=== PATIENT | female | born 1955 | race Caucasian/White ===

== ENCOUNTER 2021-10-20 10:00 | Emergency (ER) | payer MEDICARE, OTHER, SELFPAY ==
--- NOTE | ~2021-10-20 | CT_ITS ---
EXAMINATION: CT ABDOMEN AND PELVIS WITHOUT CONTRAST CLINICAL INFORMATION: Abdominal pain. COMPARISON: None TECHNIQUE: Multidetector volumetric imaging was performed from the superior aspect of the liver through the pubic symphysis. Sagittal and coronal reformatted images were obtained on the technologist's workstation. This CT examination was performed using dose optimization techniques as appropriate, variously including the following: *Automated exposure control *Adjustment of mA and/or kV according to patient size (this includes techniques or standardized protocols for targeted exams where dose is matched to indication/reason for exam; i.e. extremities or head) *Use of iterative reconstruction technique DLP: 710 mGy-cm FINDINGS: LUNG BASES: The visualized lung bases are unremarkable. LIVER, GALLBLADDER, AND BILIARY TREE: The liver is normal in size and shape. Parenchymal hypoattenuation consistent with steatosis. Right hepatic 0.8 cm hypodensity, too small to characterize. No additional focal hepatic lesion or biliary ductal dilatation is present. The gallbladder is unremarkable with no evidence of radiopaque gallstones, gallbladder wall thickening, or obvious pericholecystic inflammatory changes. PANCREAS: Unremarkable. SPLEEN: Unremarkable. ADRENAL GLANDS: Unremarkable. KIDNEYS AND URETERS: The kidneys are normal in size, shape, and attenuation. No hydronephrosis, hydroureter, or calculi seen. No perinephric stranding. BLADDER: Nondistended. GASTROINTESTINAL TRACT: Mild circumferential wall thickening of the ascending colon with minimal adjacent inflammatory change which could represent early colitis in the appropriate clinical setting. Descending and sigmoid colon diverticulosis without evidence of acute diverticulitis. No small or large bowel obstruction. Unremarkable appendix. PERITONEAL CAVITY: No intra-abdominal free air or free fluid. No intra-abdominal mass or organized fluid collection/abscess formation. ABDOMINAL WALL: No significant hernia is appreciated. LYMPH NODES: Normal. VASCULAR: Unremarkable. PELVIC VISCERA: The uterus and adnexa are unremarkable. OSSEOUS STRUCTURES: Unremarkable. CT/CT abdomen pelvis wo con IMPRESSION: 1. Mild circumferential wall thickening of the ascending colon with minimal adjacent inflammatory change which could represent early colitis in the appropriate clinical setting. No evidence of perforation or abscess formation. Descending/sigmoid diverticulosis without evidence of acute diverticulitis. No small or large bowel obstruction. Unremarkable appendix. 2. Hepatic steatosis. Fleischner guidelines were followed.
[2021-10-20 10:22] VITALS: BP 99/73; PULSE 92; TEMP 36.6; O2SAT 95; BMI 31.9
--- NOTE | 2021-10-20 10:43 | ED_ITS ---
HPI - General Adult General Chief complaint: Fever Stated complaint: fever/diarrhea/body aches Time Seen by Provider: 10/20/21 10:43 Source: patient Mode of arrival: ambulatory Limitations: no limitations History of Present Illness HPI narrative: Patient is a 66 year old female presenting to the emergency department today with nausea, diarrhea, body aches and intermittent fever. Patient states that fo r the last few days, she has had a fever, body aches, diarrhea, and nausea. Patient states that she had breast cancer and 4 weeks ago, had a bilateral masectomy and just finished radiation but did not have any chemo treatments. Patient denies any dizziness, lightheadedness, abdominal pain, vomiting, chills, blurry vision, double vision, loss of vision, chest pain, difficulty breathing, shortness of breath, back pain, night sweats, pain with urination, increased urinary frequency, increased urinary urgency, blood in her urine or stool, syncope or a near syncopal episode, recent trauma or falls, bowel incontinence, bladder incontinence, bowel retention, bladder retention, or any other complain ts at this time. Onset (ago): day(s) Severity: mild Severity scale (1-10): 2 Relieving factors: none Exacerbating factors: none Associated symptoms: nausea/vomiting Treatments prior to arrival: none Related Data Allergies Allergy/AdvReac Type Severity Reaction Status Date / Time Unable to Assess Allergy Verified 10/20/21 10:49 Review of Systems Constitutional: Constitutional: Reports no additional constitutional complaints, Denies chills, Reports fever(s) and Denies night sweats Eyes: Eyes: Reports no additional eye complaints, Denies blurry vision, Denies change in vision, Denies diplopia, Denies eye discharge, Denies loss of vision and Denies eye pain ENT: Denies dizziness Cardiovascular: Cardiovascular: Reports no additional cardiovascular complaints, Denies chest pain, Denies lightheadedness, Denies Loss of Con sciousness and Denies dyspnea Respiratory: Respiratory: Reports no additional respiratory complaints and Denies dyspnea Gastrointestinal: Gastrointestinal: Reports no additional gastrointestinal complaints, Denies abdominal pain, Denies melena, Denies hematochezia, Denies change in bowel habits, Denies change in stool character, Reports diarrhea and Reports nausea Genitourinary: Genitourinary: Denies hematuria, Denies urinary frequency, Denies dysuria, Denies urinary incontinence, Denies urinary hesitancy and Denies urinary urgency Musculoskeletal: Musculoskeletal: Reports no additional musculoskeletal complaints, Denies numbness and Denies tingling Neurologic: Denies dizziness, Denies loss of vision, Denies numbness and Denies tingling Psychiatric: Psychiatric: Reports no additional psychiatric complaints Endocrine: Endocrine: Reports no additional endocrine complaints Hematologic/Lymphatic: Hematologic/Lymphatic: Reports no additional hematologic/lymphatic complaints Allergic/Immunologic: Allergic/Immunologic: Reports no additional allergic/immunologic complaints [facility] Past Medical History Attestation statement: The following information was validated with the patient. Source: old records reviewed Medical History Breast cancer Colon cancer FH: total knee replacement Surgical History History of lumpectomy Social History Social History Alcohol intake: current Alcohol intake frequency: a few times a week Patient Tobacco Use Status: Former Tobacco user Use of substances other than those prescribed or required for medical reasons: No Advance Directives: No Advance Directives Information Provided: No Physical Exam ED Vital Signs: Vital Signs - 24 hr 10/20/21 10:22 10/20/21 12:38 Temperature 98 F 98.5 F Pulse Rate 92 72 Respiratory Rate 18 Blood Pressure 99/73 112/62 Pulse Oximetry 95 96 Oxygen Delivery Method Room Air Room Air BMI result Body Mass Index 31.9 Const General: cooperative, no acute distress, alert and awake Nutritional Appearance: well nourished Orientation/consciousness: patient oriented x3 Limitations: no limitations [facility] Head: Yes normal to inspection and Yes atraumatic Ears: hearing grossly normal bilaterally and external ears normal General nose exam: Normal external nose present, no nasal discharge noted and no epistaxis Face and sinus: Yes normal facial exam, No abrasion and No laceration Mouth: Normal oral and palatal mucosa present, no drooling and no muffled voice Eyes General: appearance normal, both eyes and all related structures Periorbital: periorbital findings normal Eyelids: Yes eyelids normal Conjunctivae: conjunctivae normal Pupils: Equal, round and reactive pupils present EOM: EOMs intact bilaterally Neck Neck: Yes normal visual inspection, Yes full ROM and Yes no lymphadenopathy Chest Chest palpation & inspection: normal inspection of the chest Resp Effort & Inspection: normal respiratory effort and able to speak in complete sentences Auscultation: clear to auscultation bilaterally Cardio Rate: regular rate Rhythm: regular rhythm GI Inspection: Yes normal to inspection Palpation (GI): Soft to palpation, not firm, nontender, no guarding and not rigid Neuro General: patient oriented x3 and moves all extremities Cranial nerves: Yes Equal, round and reactive pupils present Cognition (Neuro): normal cognition Motor exam (neuro): 5/5 motor strength present throughout Sensory Exam: Normal double simultaneous stimulation for sensation Coordination: [id number] test normal Extrem General: Yes normal to inspection, Yes full ROM and Yes capillary refill normal Psych Appearance: grossly normal Mental Status: mental status grossly normal Affect: normal affect Attitude: cooperative Thought process: Normal thought process present Thought content: Normal thought content present Insight: Good insight present (Psych) Medical Decision Making MDM Narrative Medical decision making narrative: Patient is a 66 year old female presenting to the emergency department today with a fever, diarrhea, nausea, and body aches. Patient's physical exam was unremarkable. Patient's blood work was unremarkable. Patient's EKG was unremarkable. Patient's abdominal CT showed a developing colitis but was otherwise unremarkable. I explained my physical exam findings as well as all test results to the patient. I answered all questions asked by the patient. Patient received IV fluids and Zofran which she stated helped her symptoms significantly. I stressed the importance of the patient taking her medication as prescribed. I stressed the importance of the patient following up with her primary care provider. I stressed the importance of the patient returning to the emergency department immediately if her symptoms were to worsen or if she were to develop any dizziness, shortness of breath, difficulty breathing, chest pain, blurry vision, loss of vision, nausea, vomiting, abdominal pain, fever, chills, back pain, or any other complaints. Patient verbalized agreement and understanding with this treatment plan and discharge. Differential Diagnosis Differential Diagnosis: colitis, nausea Medical Records Medical records reviewed: Yes I reviewed the patient's medical records. Lab Data Lab results reviewed: Yes I reviewed the patient's lab results. Result diagrams: 10/20/21 11:25 10/20/21 11:25 Labs: Lab Results 10/20/21 10/20/21 10/20/21 Range/Units 11:25 11:25 11:25 WBC 5.4 (4.8-10.8) X10*3/uL RBC 4.42 (4.20-5.50) X10*6/uL Hgb 13.0 (12.0-16.0) g/dl Hct 38.7 (37.0-47.0) % MCV 87.6 (80.0-98.0) fL MCH 29.4 (27.0-33.0) pg MCHC 33.6 (31.0-35.0) g/dl RDW 12.9 (11.0-16.0) % Plt Count 139 L (160-400) X10*3/uL MPV 11.1 (9.4-12.3) fL Immature Gran % (Auto) 0.2 (0.0-0.4) % Neut % (Auto) 79.9 H (45-73) % Lymph % (Auto) 8.1 L (20-40) % [place] % (Auto) 11.4 H (2-11) % Eos % (Auto) 0.2 (0-4) % Baso % (Auto) 0.2 (0-2) % Lymph # (Auto) 0.4 L (1.2-4.9) X10*3/uL [place] # (Auto) 0.6 (0.1-1.2) X10*3/uL Eos # (Auto) 0.0 (0.0-0.4) X10*3/uL Baso # (Auto) 0.0 (0.0-0.2) X10*3/uL Abs Immat Gran (auto) 0.01 (0.00-0.03) X10*3/uL Absolute Neuts (auto) 4.4 (2.0-8.3) x10*3/uL Absolute Nucleated RBC 0.000 (0.0-0.012) X10*3/uL Nucleated RBC % (auto) 0.0 (0.0-0.2) /100WBC Sodium 137 (135-145) mmol/L Potassium 3.5 (3.3-5.1) mmol/L Chloride 103 (96-108) mmol/L Carbon Dioxide 25 (22-29) mmol/L Anion Gap 13 (12-20) BUN 14 (9-16) mg/dL Creatinine 0.99 (0.5-1.4) mg/dL Estim Creat Clear Calc 62.2 Estimated GFR 56 Random Glucose 105 (60-115) mg/dL Calcium 8.9 (8.4-10.2) mg/dL Magnesium 2.0 (1.6-2.6) mg/dL Total Bilirubin 1.2 H (0.0-1.0) mg/dL AST 17 (5-31) U/L ALT 15 (0-31) U/L Alkaline Phosphatase 55 (39-117) U/L Troponin I High Sens < 3.5 (<3.5-17.0) ng/L Total Protein 6.8 (6.5-8.0) g/dL Albumin 3.9 (3.5-5.0) g/dL COVID-19 ([facility]) (Negative) COVID-19 Clin Com 10/20/21 Range/Units 11:25 WBC (4.8-10.8) X10*3/uL RBC (4.20-5.50) X10*6/uL Hgb (12.0-16.0) g/dl Hct (37.0-47.0) % MCV (80.0-98.0) fL MCH (27.0-33.0) pg MCHC (31.0-35.0) g/dl RDW (11.0-16.0) % Plt Count (160-400) X10*3/uL MPV (9.4-12.3) fL Immature Gran % (Auto) (0.0-0.4) % Neut % (Auto) (45-73) % Lymph % (Auto) (20-40) % [place] % (Auto) (2-11) % Eos % (Auto) (0-4) % Baso % (Auto) (0-2) % Lymph # (Auto) (1.2-4.9) X10*3/uL [place] # (Auto) (0.1-1.2) X10*3/uL Eos # (Auto) (0.0-0.4) X10*3/uL Baso # (Auto) (0.0-0.2) X10*3/uL Abs Immat Gran (auto) (0.00-0.03) X10*3/uL Absolute Neuts (auto) (2.0-8.3) x10*3/uL Absolute Nucleated RBC (0.0-0.012) X10*3/uL Nucleated RBC % (auto) (0.0-0.2) /100WBC Sodium (135-145) mmol/L Potassium (3.3-5.1) mmol/L Chloride (96-108) mmol/L Carbon Dioxide (22-29) mmol/L Anion Gap (12-20) BUN (9-16) mg/dL Creatinine (0.5-1.4) mg/dL Estim Creat Clear Calc Estimated GFR Random Glucose (60-115) mg/dL Calcium (8.4-10.2) mg/dL Magnesium (1.6-2.6) mg/dL Total Bilirubin (0.0-1.0) mg/dL AST (5-31) U/L ALT (0-31) U/L Alkaline Phosphatase (39-117) U/L Troponin I High Sens (<3.5-17.0) ng/L Total Protein (6.5-8.0) g/dL Albumin (3.5-5.0) g/dL COVID-19 ([facility]) Negative (Negative) COVID-19 Clin Com See Note Imaging Data CT scan - abdomen: Attestation: I personally reviewed and interpreted this imaging study as follows: My impression: Developing colitis. Radiologist's impression: EXAMINATION: CT ABDOMEN AND PELVIS WITHOUT CONTRAST? CLINICAL INFORMATION: Abdominal pain.? COMPARISON: None? TECHNIQUE: Multidetector volumetric imaging was performed from the superior aspect of the liver through the pubic symphysis. Sagittal and coronal reformatted images were obtained on the technologist's workstation.? This CT examination was performed using dose optimization techniques as appropriate, variously including the following: *Automated exposure control *Adjustment of mA and/or kV according to patient size (this includes techniques or standardized protocols for targeted exams where dose is matched to indication/reason for exam; i.e. extremities or head) *Use of iterative reconstruction technique DLP: 710 mGy-cm FINDINGS: LUNG BASES: The visualized lung bases are unremarkable.? LIVER, GALLBLADDER, AND BILIARY TREE: The liver is normal in size and shape. Parenchymal hypoattenuation consistent with steatosis. Right hepatic 0.8 cm hypodensity, too small to characterize. No additional focal hepatic lesion or biliary ductal dilatation is present. The gallbladder is unremarkable with no evidence of radiopaque gallstones, gallbladder wall thickening, or obvious pericholecystic inflammatory changes.? PANCREAS: Unremarkable.? SPLEEN: Unremarkable.? ADRENAL GLANDS: Unremarkable.? KIDNEYS AND URETERS: The kidneys are normal in size, shape, and attenuation. No hydronephrosis, hydroureter, or calculi seen. No perinephric stranding. ? BLADDER: Nondistended.? GASTROINTESTINAL TRACT: Mild circumferential wall thickening of the ascending colon with minimal adjacent inflammatory change which could represent early colitis in the appropriate clinical setting. Descending and sigmoid colon diverticulosis without evidence of acute diverticulitis. No small or large bowel obstruction. Unremarkable appendix. PERITONEAL CAVITY: No intra-abdominal free air or free fluid. No intra-abdominal mass or organized fluid collection/abscess formation.? ABDOMINAL WALL: No significant hernia is appreciated.? LYMPH NODES: Normal. VASCULAR: Unremarkable. PELVIC VISCERA: The uterus and adnexa are unremarkable.? OSSEOUS STRUCTURES: Unremarkable.? CT/CT abdomen pelvis wo con IMPRESSION: 1. Mild circumferential wall thickening of the ascending colon with minimal adjacent inflammatory change which could represent early colitis in the appropriate clinical setting. No evidence of perforation or abscess formation. Descending/sigmoid diverticulosis without evidence of acute diverticulitis. No small or large bowel obstruction. Unremarkable appendix. ? 2. Hepatic steatosis. ? Fleischner guidelines were followed. Dictated By: Yoandy Dailey MD Signed By: Electronically signed by Yoandy Dailey MD 10/20/21 1132 ECG Data Attestation: I personally reviewed and interpreted this ECG as follows: Prior ECG tracings: not available for review Interpretation: Vent. Rate: 076 BPM ? ? Atrial Rate: 076 BPM P-R Int: 164 ms? QRS Dur: 086 ms QT Int: 400 ms ? ? ? P-R-T Axes: 008 -16 012 degrees QTc Int: 450 ms ? Normal sinus rhythm Cannot rule out Anterior infarct , age undetermined Abnormal ECG No previous ECGs available DD/ 1130 Discharge Plan Discharge Clinical Impression: Acute colitis Patient Disposition: Home, Self-Care Instructions: Colitis (ED) Additional Instructions: Follow up with your primary care provider. Return to the emergency department immediately if your symptoms worsen or if you develop any dizziness, shortness of breath, difficulty breathing, chest pain, blurry vision, loss of vision, nausea, vomiting, abdominal pain, fever, chills, back pain, or any other complaints. Interventions: ED Discharge Assessment Last Done: 10/20/21 12:50 Discharge Date/Time: 10/20/21 12:53 Print Language: Vietnamese
--- NOTE | 2021-10-20 10:49 | ECG_ITS ---
Test Reason : CP Blood Pressure : / mmHG Vent. Rate : 076 BPM Atrial Rate : 076 BPM P-R Int : 164 ms QRS Dur : 086 ms QT Int : 400 ms P-R-T Axes : 008 -16 012 degrees QTc Int : 450 ms Normal sinus rhythm Cannot rule out Anterior infarct , age undetermined Abnormal ECG No previous ECGs available Referred By: Lurdes Ortiz Electronically Signed By:Lopez Merrill
[2021-10-20] MEDS: 0.9 % Sodium Chloride 1,000 ML 999 ML IVCONT (11:27)
[2021-10-20 11:33] LABS: MANUAL DIFF FLAG NO
[2021-10-20] MEDS: ondansetron HCL 4 MG/2 ML VIAL IVPUSH (11:36)
[2021-10-20 11:38] LABS: Basophils Percent Auto 0.2 % (0-2); Eosinophils Percent Auto 0.2 % (0-4); Hematocrit 38.7 % (37.0-47.0); Imm Gran Abs Auto 0.01 X10*3/uL (0.00-0.03); Imm Gran Pct Auto 0.2 % (0.0-0.4); Lymphocytes Absolute Auto 0.4 X10*3/uL (1.2-4.9); Lymphocytes Percent Auto 8.1 % (20-40); Mean Corpuscular HGB Conc 33.6 g/dl (31.0-35.0); Mean Corpuscular Hemoglobin 29.4 pg (27.0-33.0); Mean Corpuscular Volume 87.6 fL (80.0-98.0); Mean Platelet Volume 11.1 fL (9.4-12.3); Monocytes Absolute Auto 0.6 X10*3/uL (0.1-1.2); Monocytes Percent Auto 11.4 % (2-11); Neutrophils Absolute Auto 4.4 x10*3/uL (2.0-8.3); Neutrophils Percent Auto 79.9 % (45-73); Platelet Count 139 X10*3/uL (160-400); Red Blood Count 4.42 X10*6/uL (4.20-5.50); Red Cell Distribution Width 12.9 % (11.0-16.0); White Blood Count 5.4 X10*3/uL (4.8-10.8)
--- NOTE | 2021-10-20 11:42 | PC.NURSE ---
patient a&ox3, iv inserted, labs drawn, ivf hung per order, pt medicated per order, will continue to monitor.
[2021-10-20 12:00] LABS: Alanine Aminotransferase 15 U/L (0-31); Albumin Level 3.9 g/dL (3.5-5.0); Alkaline Phosphatase 55 U/L (39-117); Anion Gap 13 (12-20); Aspartate Amino Transferase 17 U/L (5-31); Bilirubin Total 1.2 mg/dL (0.0-1.0); Blood Urea Nitrogen 14 mg/dL (9-16); COVID-19 Test Negative (Negative); Calcium 8.9 mg/dL (8.4-10.2); Carbon Dioxide 25 mmol/L (22-29); Chloride 103 mmol/L (96-108); Creatinine Clr Calc Pharmacy 62.2; Estimated Glomerular Filt Rate 56; Glucose Random 105 mg/dL (60-115); Potassium 3.5 mmol/L (3.3-5.1); Sodium 137 mmol/L (135-145); Total Protein 6.8 g/dL (6.5-8.0)
[2021-10-20 12:06] LABS: Troponin-I High Sensitivity < 3.5 ng/L (<3.5-17.0)
[2021-10-20 12:38] VITALS: BP 112/62; PULSE 72; RESP 18; TEMP 36.9; O2SAT 96
== END 2021-10-20 12:53 | disposition home or self-care (01) ==
PROVIDERS: Physician Assistant Medical; Emergency Provider Emergency Medicine Emergency Medical Services
DX: K52.9 Noninfective gastroenteritis and colitis, unspecified (principal); R50.9 Fever, unspecified; R11.2 Nausea with vomiting, unspecified; R07.89 Other chest pain; M79.10 Myalgia, unspecified site; Z20.822 Contact with and (suspected) exposure to COVID-19; Z87.891 Personal history of nicotine dependence
CPT/HCPCS: 74176; 80053; 83735; 84484; 85025; 87635; 93005; 96360; 96361; 96375; 99284; J2405